=== PATIENT | female | born 1995 | race Caucasian/White ===

== ENCOUNTER 2018-12-11 22:03 | Emergency (ER) | payer SELFPAY ==
[2018-12-11 22:17] VITALS: BP 132/78; PULSE 99; RESP 17; TEMP 36.9; O2SAT 100
--- NOTE | 2018-12-11 22:36 | ED_ITS ---
HPI - Back Pain/Injury General Chief Complaint: Back Pain/Injury Stated Complaint: kidney pain Time Seen by Provider: 12/11/18 22:27 Source: patient Mode of arrival: Ambulatory Limitations: no limitations History of Present Illness HPI Narrative: 23-year-old female here for evaluation bilateral mid back pain and left lower back pain. Patient states that it started yesterday with lower back pain has now moved upwards and is on the right side. No trauma. States she has had some urinary symptoms and had multiple urinary tract infections in the past. No bowel symptoms. No history of kidney stones. No rash Related Data Allergies Allergy/AdvReac Type Severity Reaction Status Date / Time amoxicillin Allergy Verified 12/11/18 22:23 cephalexin [From Keflex] Allergy Verified 12/11/18 22:23 clindamycin Allergy Verified 12/11/18 22:23 Penicillins Allergy Verified 12/11/18 22:23 Review of Systems Constitutional Constitutional: Denies fever(s) ENT Ears, Nose, Mouth, and Throat: Denies disequilibrium Musculoskeletal Musculoskeletal: Reports back pain and Denies arthralgias Integumentary/Breasts Skin/Breast: Denies lesions and Denies rash Neurologic Neurologic: Denies behavioral changes, Denies paresthesias and Denies disequilibrium Psychiatric Psychiatric: Denies behavioral changes Hematologic/Lymphatic Hematologic/Lymphatic: Denies easy bleeding and Denies easy bruising Patient History Medical History Urinary tract infection (Acute) Social History Smoking Status: Never smoker alcohol intake frequency: a few times a month Alcohol type: wine Substance Use Type: does not use Exam Initial Vital Signs Initial Vital Signs: Vital Signs Temperature 98.4 F 12/11/18 22:17 Pulse Rate 99 H 12/11/18 22:17 Respiratory Rate 17 12/11/18 22:17 Blood Pressure 132/78 12/11/18 22:17 Pulse Oximetry 100 12/11/18 22:17 Const General: cooperative and comfortable Orientation: alert and awake HENMT Head: normal to inspection and normocephalic Resp Effort & Inspection: normal respiratory effort Auscultation: clear to auscultation bilaterally Cardio Rate: regular rate Rhythm: regular rhythm Back/Spine/Pelvis Thoracic/Lumbar Spine: paraspinal tenderness Sacroiliac Joints: tender to palpation left Skin Lesions: no lesions Rashes: no rashes Extrem General: normal to inspection and capillary refill normal Psych Appearance: grossly normal and well kempt Course Orders Ordered: ED Orders 12/11/18 22:10 Urine Microscopic Stat Vital Signs Vital signs: Vital Signs - 8 hr 12/11/18 22:17 Temperature 98.4 F Pulse Rate 99 H Respiratory Rate 17 Blood Pressure 132/78 Pulse Oximetry 100 MDM - Back Pain/Injury Lab Data Attestation: I reviewed the patient's lab results. Labs: Lab Results 12/11/18 Range/Units 22:10 Urine RBC 0-1/hpf (0-5/HPF) Urine WBC 0-1/hpf (0-5/HPF) Ur Squamous Epith Cells 0-1 /hpf (0-5/HPF) Urine Bacteria Occasional (0-1) (None) Ur Culture Indicated? Cult not indicated Point of Care Testing Test Results Negative Urine Dip Bedside Urine Glucose Negative Bedside Urine Bilirubin - Negative Bedside Urine Ketone - Negative Urine Specific [place] 1.010 Bedside Urine Occult Blood +/- Bedside Urine pH 6.0 Bedside Urine Protein - Negative Bedside Urine Urobilinogen - Negative Bedside Urine Nitrite - Negative Bedside Urine Leukocytes - Negative Esterase MDM Narrative Medical decision making narrative: Patient's history and physical exam consistent with musculoskeletal back pain no signs urinary tract infection. No indication for antibiotics. Patient declined the offer for muscle relaxation. We discussed other symptoms include heat ice and massage. Patient was given return precautions. She expressed understanding and agreement with plan. Discharge Plan Departure Patient Disposition: Home Clinical Impression: Lumbar back pain Back strain Qualifiers: Encounter type: initial encounter Qualified Code(s): S39.012A - Strain of muscle, fascia and tendon of lower back, initial encounter Discharge Date/Time: 12/11/18 22:38 Instructions: DI for Back Strain or Sprain Activity Restrictions/Additional Instructions: Recommend that you do light stretching. You can also do heat/ice and massage. You know restrictions on your activities. Return to the emergency department for any new or worsening symptoms
[2018-12-11 22:49] LABS: Bacteria Urine Occasional (0-1); RBC Urine 0-1/HPF (0-5/HPF); Squamous Epithelial Cell Urine 0-1 /HPF (0-5/HPF); WBC Urine 0-1/HPF (0-5/HPF)
[2018-12-11 22:50] LABS: Culture Indicated Urine Cult Not Indicated
== END 2018-12-11 22:38 | disposition home or self-care (01) ==
LOC: ED 22:39
PROVIDERS: Emergency Provider Emergency Medicine
DX: S39.012A Strain of muscle, fascia and tendon of lower back, initial encounter (principal)
CPT/HCPCS: 81003; 81015; 81025; 99282; 99283